=== PATIENT | female | born 1960 | race Caucasian/White ===

== ENCOUNTER 2017-07-07 10:53 | Emergency (ER) | payer OTHER ==
[~2017-07-07] VITALS: Ht 160 cm; Wt 59.0 kg
--- NOTE | ~2017-07-07 | EKG ---
[place] [address] [facility] [address] [place] [address] ELECTROCARDIOGRAM REPORT Name: CECY MERRITT Room #: [facility]P [id number] Admission: 07/07/17 Attend Phys: Discharge: 07/07/17 Date of : 60 Report #: [id number] THIS REPORT FOR: //name// [facility] ED Test Date: 2017-07-07 Test Time: 10:57:15 Pat Name: CECY MERRITT Department: Room: Gender: F Senior Software [employer]: [employer] : 1960 Requested By: Emilie Santacruz Order Number: [id number] MD: Moe Atkins Measurements Intervals [place] Rate: 89 P: 38 DE: 188 QRS: -16 QRSD: 88 T: 17 QT: 345 QTc: 420 Interpretive Statements Sinus rhythm Atrial premature complex Left atrial enlargement Borderline left axis deviation RSR' in V1 or V2, probably normal variant No previous ECG available for comparison Electronically Signed On 07-07-2017 13:32:25 [employer] by Moe Atkins [email or web address] <ELECTRONICALLY SIGNED> By: Moe Atkins MD 07/07/17 1332 56 56 Moe Atkins MD /DEVYN
[2017-07-07 11:17] LABS: ABSOLUTE NEUTROPHILS 4.6 thou/uL (1.4-8.2); BASOPHILS 1.2 % (0.0-2.0); EOSINOPHILS 2.5 % (0.0-3.0); HEMATOCRIT 41.9 % (37.0-47.0); LYMPHOCYTES 22.7 % (24.0-44.0); MCH 30.8 pg (26.0-34.0); MCHC 33.5 g/dL (28.0-37.0); MCV 91.9 fL (80.0-100.0); MONOCYTES 8.4 % (1.0-8.0); PLATELET COUNT 271 thou/uL (150-400); POLYS 65.2 % (36.0-66.0); RBC 4.55 mil/uL (4.20-5.00); RDW 13.3 % (10.5-14.5); WBC 7.1 thou/uL (4.0-11.0)
[2017-07-07 11:27] LABS: ANION GAP 9 mmol/L (7-16); BUN 17 mg/dL (7-18); CALCIUM 9.5 mg/dL (8.5-10.1); CHLORIDE 102 mmol/L (98-107); CO2 28 mmol/L (21-32); CREATININE 0.9 mg/dL (0.6-1.0); GLUCOSE 90 mg/dL (74-106); POTASSIUM 3.9 mmol/L (3.5-5.1); SODIUM 139 mmol/L (136-145)
[2017-07-07 11:35] LABS: TROPONIN-I < 0.04 ng/mL (<0.06)
[2017-07-07] MEDS ORDERED: TOPROL XL25 MG PO (12:08)
== END 2017-07-07 12:27 | disposition home or self-care (01) ==
LOC: ER 10:53
PROVIDERS: Emergency Medicine
DX: R00.2 Palpitations (principal)

== ENCOUNTER → 2019-03-21 | Outpatient (CLI) | payer OTHER ==
[~2019-03-21] MED LIST: TOPROL XL25 MG PO
== END ==
LOC: ULTRA 11:03 → CAT 14:03 → ULTRA 14:03
DX: Z12.31 Encounter for screening mammogram for malignant neoplasm of breast (principal); Z13.6 Encounter for screening for cardiovascular disorders; E78.00 Pure hypercholesterolemia, unspecified; I25.10 Atherosclerotic heart disease of native coronary artery without angina pectoris; E04.1 Nontoxic single thyroid nodule

== ENCOUNTER → 2020-11-23 | Outpatient (CLI) | payer OTHER | LOC: RAD 15:07 | PROVIDERS: ATTEND Family Medicine | DX: Z12.31 Encounter for screening mammogram for malignant neoplasm of breast (principal) ==